=== PATIENT | male | born 1955 | race Hispanic/Latino ===

== ENCOUNTER → 2018-03-27 | Outpatient (CLI) | payer OTHER ==
[~2018-03-27] MED LIST: ALEVE220 MG PO; IBUPROFEN400 MG PO; LISINOPRIL PO; TOPROL XL50 MG PO; ULTRAM 50MG50 MG PO; VICODIN PO
--- NOTE | 2018-03-27 12:39 | Diagnostic Imaging Report ---
PROCEDURE:L-SPINE 3V COMPARISON:None. INDICATIONS:BACK PAIN FINDINGS: There are 5 lumbar-type vertebral bodies. There are no acute, displaced fractures, lytic or blastic lesions. Mild leftward curvature of the lumbar spine. Multilevel degenerative disc changes in the form of osteophytosis and mild intervertebral disc space narrowing, worse at L4-L5, and L5-S1. Grade 1 anterolisthesis of L4 on L5. Facet hypertrophy L4-L5, and L5-S1. The vertebral body heights are well-maintained. The sacroiliac joints are unremarkable. Left total hip replacement. CONCLUSION: No acute abnormalities. Leftward curvature of the lumbar spine. Degenerative disc changes, worse at L4-L5, and L5-S1, with grade 1 anterolisthesis of L4 on L5. Degenerative joint disease in the form of facet hypertrophy. L4-L5 and L5-S1. Andrea Subramanian M.D. Dictated by: Andrea Subramanian M.D. on 03/27/2018 at 12:40 Electronically approved by: Andrea Subramanian M.D. on 03/27/2018 at 12:40
--- NOTE | 2018-03-27 14:27 | Diagnostic Imaging Report ---
PROCEDURE:HAND BILATERAL 3 OR MORE VIEWS INDICATION:Numbness COMPARISON:None. FINDINGS: Right: Normal mineralization. No acute, displaced fracture or dislocation. No lytic or blastic lesions. No cystic erosive changes. Minimal distal interphalangeal osteophytosis, predominantly noted in the first digit. No lytic lesion. Soft tissues are unremarkable. Left: Normal mineralization. No acute, displaced fracture or dislocation. No lytic or blastic lesions. No cystic erosive changes. Joint spaces are preserved. No lytic lesion. Soft tissues are unremarkable. CONCLUSION: 1. No acute abnormalities. 2. Minimal degenerative changes in the right first finger interphalangeal joint. Andrea Subramanian M.D. Dictated by: Andrea Subramanian M.D. on 03/27/2018 at 14:29 Electronically approved by: Andrea Subramanian M.D. on 03/27/2018 at 14:29
== END ==
LOC: RAD 11:04
PROVIDERS: ATTEND Student in an Organized Health Care Education/Training Program
DX: M54.5 Low back pain (principal); M79.642 Pain in left hand; M79.641 Pain in right hand; M13.0 Polyarthritis, unspecified
CPT/HCPCS: 72100